=== PATIENT | male | born 1985 | race Caucasian/White ===

== ENCOUNTER 2022-07-02 17:08 | Emergency (ER) | payer SELFPAY ==
[~2022-07-02] VITALS: Ht 180.3 cm; Wt 104.3 kg
[2022-07-02] MEDS ORDERED: ACETAMINOPHEN 325 MG TABLET ONE (17:43)
[2022-07-02] MEDS ORDERED: ACETAMINOPHEN 325 MG TABLET PO ONE (17:45)
--- NOTE | 2022-07-02 17:56 | NUR ---
Pt. given brown rocío and also requested jamie mcleod,. Addendum: 07/02/22 at 1756 by MILLI the above note was inteded for another patient.
--- NOTE | 2022-07-02 19:00 | NUR ---
Received report from HOANG Latham.
--- NOTE | 2022-07-02 19:09 | NUR ---
Patient back from CT.
--- NOTE | 2022-07-02 22:23 | NUR ---
Patient discharged to home in stable condition with family taking patient home. Written and verbal after care instructions given. Patient verbalizes understanding of instructions. Stressed follow up or return to ER for worsening s/s.
[2022-07-02 22:24] VITALS: BP 145/90
== END 2022-07-02 22:24 | disposition home or self-care (01) ==
LOC: ER 17:18
DX: S06.9X1A Unspecified intracranial injury with loss of consciousness of 30 minutes or less, initial encounter (principal); R40.2362 Coma scale, best motor response, obeys commands, at arrival to emergency department; R40.2252 Coma scale, best verbal response, oriented, at arrival to emergency department; R40.2142 Coma scale, eyes open, spontaneous, at arrival to emergency department; W01.0XXA Fall on same level from slipping, tripping and stumbling without subsequent striking against object, initial encounter; Y93.01 Activity, walking, marching and hiking; Y92.89 Other specified places as the place of occurrence of the external cause; M25.532 Pain in left wrist; M25.562 Pain in left knee
CPT/HCPCS: 70450; 70486; 73100; 73110; A4663